=== PATIENT | female | born 1990 | race Caucasian/White ===

== ENCOUNTER 2021-06-02 10:42 | Emergency (ER) | payer SELFPAY ==
[~2021-06-02] VITALS: Ht 175.3 cm; Wt 104.5 kg
[~2021-06-02 10:42] MED LIST: BACTRIM DS 8001 TAB PO; CELEXA10 MG PO; PYRIDIUM200 M1 PO; ZOFRAN8 MG PO
[2021-06-02 11:41] LABS: BASO % 0.5 % (0.0-2.0); EOS # 0.1 K/mm3 (0.0-0.7); EOS % 1.4 % (0.0-4.0); GRAN # 4.8 K/mm3 (1.4-6.5); GRAN % 63.6 % (42.2-75.2); HEMATOCRIT 42.2 % (37.0-47.0); LYMPH # 2.2 K/mm3 (1.2-3.4); LYMPH % 28.3 % (20.0-51.0); MEAN CELL VOLUME 87 fl (80.0-100.0); MEAN CORPUSCULAR HEMOGLOBIN 31 pg (27-31); MEAN CORPUSCULAR HGB CONC 36 g/dl (33.0-37.0); MEAN PLATELET VOLUME 8.3 fl (7.4-10.4); MONO # 0.5 K/mm3 (0.1-0.6); MONO % 5.9 % (1.7-9.3); PLATELET COUNT 336 K/mm3 (130-400); RED BLOOD COUNT 4.87 M/mm3 (4.10-5.30); REDCELL DISTRIBUTION WIDTH-CV 12.3 % (11.5-14.5)
[2021-06-02 11:59] LABS: ALANINE AMINOTRANSFERASE 25 U/L (0-55); ALBUMIN 4.1 gm/dL (3.5-5.0); ALKALINE PHOSPHATASE 99 U/L (40-150); AST,SGOT 13 U/L (5-34); BILIRUBIN,TOTAL 0.6 mg/dL (0.2-1.2); BLOOD UREA NITROGEN 12 mg/dL (7-19); CARBON DIOXIDE 23 mmol/L (22-29); CREATININE, serum 0.78 mg/dL (0.57-1.11); GLUCOSE 93 mg/dL (70-99); TOTAL PROTEIN 6.9 gm/dL (6.2-8.1)
[2021-06-02 12:05] LABS: ANION GAP 9 mmol/L (7-16); CHLORIDE 106 mmol/L (98-107); POTASSIUM 4.2 mmol/L (3.5-4.5); SODIUM 138 mmol/L (136-145)
[2021-06-02 12:06] LABS: TROPONIN-I < 0.010 ng/mL (0.00-0.033)
[2021-06-02 14:00] VITALS: BP 136/81; PULSE 103
== END 2021-06-02 14:30 | disposition home or self-care (01) ==
LOC: COL.ER 10:42
PROVIDERS: Student in an Organized Health Care Education/Training Program
DX: R07.9 Chest pain, unspecified (principal); R06.02 Shortness of breath; Z87.891 Personal history of nicotine dependence; Z91.040 Latex allergy status